=== PATIENT | female | born 1945 | race Caucasian/White ===

== ENCOUNTER 2017-05-10 14:41 | Emergency (ER) | payer OTHER, MEDICARE ==
[~2017-05-10] VITALS: Ht 162.6 cm; Wt 50.4 kg
[~2017-05-10 14:41] MED LIST: ALPRAZOLAM0.25 M2 PO; AMIODARONE HCL200 MG PO; ANTIVERT25 MG PO; ATIVAN1 MG PO; CEFTIN250 MG PO; CIPRO500 MG PO; CRANBERRY500 M3 PO; ELIQUIS5 MG PO; FLUTICASONE PRO16 GM BOTH NARES; LATANOPROST2.5 ML BOTH EYES; LEXAPRO5 MG PO; LOPRESSOR25 MG PO; LORAZEPAM1 MG PO; LOW DOSE ASPIRI81 M1 PO; MECLIZINE HCL12.5 M1 PO; METOPROLOL TART25 MG PO; MIRALAX255 GM PO; OPTIFLEX-C400 MG PO; PANTOPRAZOLE SO40 MG PO; POTASSIUM GLUCO2 MEQ PO; PROMETHAZINE HC25 M1 PO; TIMOLOL MALEATE15 M1 BOTH EYES; ZOFRAN ODT4 MG PO; ZOFRAN4 MG PO
[2017-05-10 16:03] LABS: HEMATOCRIT 39.7 % (36.0-46.0); MCH 30.1 PG (29.0-34.0); MCHC 34.5 G/DL (30.0-36.0); MCV 87.3 FL (83-99); MEAN PLAT.VOLUME 10.6 uM^3 (9.5-12.4); PLATELET COUNT 163 K/uL (156-360); RBC DIS.WIDTH-CV 11.9 % (11.8-14.6); RBC DIS.WIDTH-SD 38.2 % (39-53); RED BLOOD COUNT 4.55 M/uL (3.80-5.20); WHITE BLOOD COUNT 5.7 K/uL (4.1-10.2)
[2017-05-10 16:14] LABS: CHLORIDE 105 mEq/L (99-109); POTASSIUM 3.3 mEq/L (3.7-5.4); SODIUM 140 mEq/L (136-147)
[2017-05-10 16:16] LABS: GLUCOSE 100 mg/dL (70-99)
[2017-05-10 16:18] LABS: ANION GAP 12 MEQ/L (2-14)
[2017-05-10 16:20] LABS: GFR ESTIMATE (CALCULATED) > 59 mL/min/
[2017-05-10 16:21] LABS: UREA NITROGEN (BUN) 9 mg/dL (9-23)
[2017-05-10 16:24] LABS: TROP-I INTERPRETATION NEGATIVE; TROPONIN-I < 0.01 ng/mL (0.0-0.30)
[2017-05-10 20:05] LABS: ADD MIUA? YES; BILIRUBIN NEGATIVE; BLOOD SMALL; COLOR STRAW ((YELLOW)); GLUCOSE (STRIP) NEGATIVE; KETONES 20; LEUKOCYTES NEGATIVE; NITRITE NEGATIVE; PROTEIN (STRIP) NEGATIVE; SPECIFIC GRAVITY 1.006 (1.000-1.030); UROBILINOGEN 0.2 MG/DL (0.2-1.0)
[2017-05-10 20:15] LABS: BACTERIA RARE /HPF; EPITHELIAL CELLS NONE SEEN /HPF; MUCUS NONE SEEN /LPF; RED BLOOD CELLS 0-5 /HPF (0-5); UCUL ADDED? NO; WHITE BLOOD CELLS 0-5 /HPF (0-5)
[2017-05-10 20:57] VITALS: BP 150/86
== END 2017-05-10 20:58 | disposition home or self-care (01) ==
LOC: EME 14:41
PROVIDERS: Physician Assistant Medical
DX: R42 Dizziness and giddiness (principal); R11.0 Nausea; I48.91 Unspecified atrial fibrillation; Z79.01 Long term (current) use of anticoagulants; F32.9 Major depressive disorder, single episode, unspecified; K21.9 Gastro-esophageal reflux disease without esophagitis; F41.9 Anxiety disorder, unspecified; Z85.9 Personal history of malignant neoplasm, unspecified; Z88.0 Allergy status to penicillin; Z88.8 Allergy status to other drugs, medicaments and biological substances
CPT/HCPCS: 80048; 81003; 84484; 85027; 93005; 99281; 99284; J7030

== ENCOUNTER 2017-06-20 12:41 | Observation (INO) | payer OTHER, MEDICARE ==
[~2017-06-20] VITALS: Ht 162.6 cm; Wt 50.0 kg
[2017-06-20 13:23] LABS: BASOPHIL (%) 0.2 % (0-1); EOSINOPHIL (%) 0.2 % (0-5); HEMATOCRIT 39.9 % (36.0-46.0); HEMOGLOBIN 13.6 G/DL (11.9-15.5); IMMATURE GRANULOCYTE (%) 0.2 % (0.0-0.7); LYMPHOCYTE (%) 12.9 % (15-42); LYMPHOCYTE COUNT 0.5 K/uL (1.0-2.8); MCH 30.4 PG (29.0-34.0); MCHC 34.1 G/DL (30.0-36.0); MCV 89.3 FL (83-99); MONOCYTE COUNT 0.5 K/uL (0-0.8); NEUTROPHIL (%) 75.5 % (45-76); NEUTROPHIL COUNT 3.1 K/uL (1.8-6.4); PLATELET COUNT 131 K/uL (156-360); RBC DIS.WIDTH-CV 12.5 % (11.8-14.6); RBC DIS.WIDTH-SD 41.1 % (39-53); RED BLOOD COUNT 4.47 M/uL (3.80-5.20); WHITE BLOOD COUNT 4.1 K/uL (4.1-10.2)
[2017-06-20 13:30] LABS: CHLORIDE 103 mEq/L (99-109); POTASSIUM 3.6 mEq/L (3.7-5.4); SODIUM 138 mEq/L (136-147)
[2017-06-20 13:32] LABS: GLUCOSE 112 mg/dL (70-99)
[2017-06-20 13:35] LABS: CREATININE 0.7 mg/dL (0.6-1.3); GFR ESTIMATE (CALCULATED) > 59 mL/min/
[2017-06-20 13:36] LABS: UREA NITROGEN (BUN) 10 mg/dL (9-23)
[2017-06-20 13:43] LABS: TROP-I INTERPRETATION NEGATIVE; TROPONIN-I < 0.01 ng/mL (0.0-0.30)
[2017-06-20] MEDS ORDERED: LOPRESSOR25 MG PO (14:28)
[2017-06-20] MEDS ORDERED: PRILOSEC20 MG PO (14:29)
[2017-06-20] MEDS ORDERED: COLACE100 MG PO (14:30)
[2017-06-20] MEDS ORDERED: FLONASE16 G1 BOTH NARES (14:32)
[2017-06-20] MEDS ORDERED: CALCIUM + VITAMIN D PO (14:34)
[2017-06-20] MEDS ORDERED: LORAZEPAM1 MG PO (14:35)
[2017-06-20 16:56] VITALS: BP 126/72
[2017-06-20 23:39] VITALS: BP 130/64
[2017-06-21 04:01] VITALS: BP 122/65
[2017-06-21 06:30] LABS: HEMATOCRIT 34.8 % (36.0-46.0); MCH 30.3 PG (29.0-34.0); MCV 91.6 FL (83-99); PLATELET COUNT 116 K/uL (156-360); RBC DIS.WIDTH-CV 12.7 % (11.8-14.6); RBC DIS.WIDTH-SD 42.9 % (39-53); WHITE BLOOD COUNT 3.8 K/uL (4.1-10.2)
[2017-06-21 06:33] LABS: HEMOGLOBIN 11.5 G/DL (11.9-15.5)
[2017-06-21 06:51] LABS: CHLORIDE 107 MEQ/L (99-109); CREATININE 0.7 MG/DL (0.6-1.3); GFR ESTIMATE (CALCULATED) > 59 mL/min/; GLUCOSE 96 mg/dL (70-99); POTASSIUM 3.3 MEQ/L (3.7-5.4); SODIUM 142 MEQ/L (136-147); UREA NITROGEN (BUN) 6 mg/dL (9-23)
== END 2017-06-21 14:08 | disposition home or self-care (01) ==
LOC: EME 12:41 → EDOF 15:28 → 5WEST 15:28 → ENRESERV 15:32 → 5WEST 16:38
PROVIDERS: Emergency Medicine; Internal Medicine
DX: I48.91 Unspecified atrial fibrillation (principal); E86.0 Dehydration; E87.6 Hypokalemia; R11.2 Nausea with vomiting, unspecified; R19.7 Diarrhea, unspecified; D64.9 Anemia, unspecified; I10 Essential (primary) hypertension; D69.6 Thrombocytopenia, unspecified; K21.9 Gastro-esophageal reflux disease without esophagitis; F41.9 Anxiety disorder, unspecified; M85.80 Other specified disorders of bone density and structure, unspecified site; Z90.710 Acquired absence of both cervix and uterus; Z82.49 Family history of ischemic heart disease and other diseases of the circulatory system; Z80.1 Family history of malignant neoplasm of trachea, bronchus and lung; Z79.01 Long term (current) use of anticoagulants; Z88.7 Allergy status to serum and vaccine; Z88.8 Allergy status to other drugs, medicaments and biological substances; Z88.0 Allergy status to penicillin
CPT/HCPCS: 80048; 84484; 85025; 85027; 87493; 93005; C9113; G0378; J2405; J7030